=== PATIENT | male | born 1950 | race Caucasian/White ===

== ENCOUNTER → 2017-06-25 | Outpatient (CLI) | payer MEDICARE, OTHER ==
[~2017-06-25] MED LIST: CHOL10005 PO; MULT-1124 PO
--- NOTE | 2017-06-25 15:41 | RADIOLOGY IMAGING REPORT ---
FACILITY: [facility] [place] PATIENT NAME: Gilson Alvarez : 1950 MR: [id number] V: [id number] EXAM DATE: ORDERING PHYSICIAN: KIRSTIN BECKFORD TECHNOLOGIST: Location: [facility] Patient: Gilson Alvarez : 1950 Visit/Account:[id number] Date of Sevice: 06/25/2017 Exam type: THORACIC SPINE 3 VIEWS History: Neck pain, numbness and tingling down both upper extremities Comparison: Cervical spine series performed today. Findings: There is no evidence of acute fractures or subluxations in the thoracic spine. Tiny marginal osteoph ytes are present in the mid to lower thoracic spine. The upper most portion of the thoracic spine in the lateral projection is better seen on today's cervical spine series There does appear to moderate disc space narrowing in the upper portion of the thoracic spine IMPRESSION: 1. Mild to moderate spondylotic changes of the thoracic spine Report Dictated By: Maribel Chiang MD at 06/25/2017 3:34 PM Report E-Signed By: Maribel Chiang MD at 06/25/2017 3:37 PM WSN:[email or web address]
--- NOTE | 2017-06-25 15:44 | RADIOLOGY IMAGING REPORT ---
FACILITY: [facility] [place] PATIENT NAME: Gilson Alvarez : 1950 MR: [id number] V: [id number] EXAM DATE: ORDERING PHYSICIAN: KIRSTIN BECKFORD TECHNOLOGIST: Location: [facility] [place] Patient: Gilson Alvarez : 1950 Visit/Account:[id number] Date of Sevice: 06/25/2017 Exam type: CERVICAL SPINE MIN 4 VIEW History: Neck pain, numbness and tingling down both upper extremities Comparison: Thoracic spine series performed today. Findings: There is a 4 mm anterolisthesis of C4 with respect to C5 with moderate disc space narrowing and anter ior osteophytes. There is moderate disc space narrowing with anterior osteophytes at C5-6 and C6-7. At the level of C7-T1 there are severe disc space narrowing and a 6 mm anterior subluxation of C7 wi th respect to T1 there is severe foraminal narrowing on the left at C3-4 and C4-5 and moderate forami nal narrowing on the left at C5-6 and C6-7 and C7-T1. There is mild to moderate foraminal narrowing on the right at C3-4 C4-5 C5-6 C6-7 and C7-T1. These changes are related to hypertrophic degenerativ e facet joint changes and uncovertebral spurring. There is no evidence of prevertebral soft tissue s welling IMPRESSION: 1. Moderate to severe multilevel spondylotic changes of the cervical spine as described above Report Dictated By: Maribel Chiang MD at 06/25/2017 3:37 PM Report E-Signed By: Maribel Chiang MD at 06/25/2017 3:40 PM WSN:[email or web address]
== END ==
LOC: RAD 13:53
PROVIDERS: ATTEND Family Medicine
DX: M47.893 Other spondylosis, cervicothoracic region (principal)
CPT/HCPCS: 72050; 72072

== ENCOUNTER 2018-05-05 13:07 | Emergency (ER) | payer MEDICARE, OTHER ==
--- NOTE | 2018-05-05 13:42 | ER Report ---
History and Physical Time Seen By MD: 13:42 Hx. of Stated Complaint: HIT TREE WHILE SKIING- RIGHT RIB PAIN AND RIGHT UPPER ARM PAIN . HPI/ROS CHIEF COMPLAINT: Right shoulder, right arm and right rib pain HISTORY OF PRESENT ILLNESS: 67-year-old male patient presents to emergency room with complaint of right shoulder, right arm and right rib pain. Patient states that he was skiing today. He states he was going through [place] when he lost control and slid into a tree. Patient states that he was able to go the rest the way down was able to drive himself in. He states he has significant pain to the right arm as well as the right ribs. He states that he has a hard time moving the right arm because the pain. He denies having any numbness or tingling to the arm. He denies any nausea, vomiting or diarrhea. Patient states pain is worse when he takes a deep inspiration. REVIEW OF SYSTEMS: Respiratory: No cough, no dyspnea. Cardiovascular: No chest pain, no palpitations. Gastrointestinal: No vomiting, no abdominal pain. Musculoskeletal: As noted above Allergies: Coded Allergies: Penicillins (Unverified Allergy, Unknown, UNKNOWN, 12/06/13) doxycycline (Unverified Allergy, Unknown, UNKNOWN, 12/06/13) Home Meds Active Scripts Oxycodone Hcl/Acetaminophen (PERCOCET 5-325 MG TABLET) 1 Each Tablet, 1 EACH PO Q4-6H PRN for PAIN, #20 TAB Prov:NANO DEVINEP 05/05/18 Ketorolac Tromethamine (KETOROLAC TROMETHAMINE) 10 Mg Tab, 10 MG PO Q6H, #20 TAB Prov:NANO DEVINE [facility] 05/05/18 Discontinued Reported Medications Cholecalciferol (Vitamin D3) (VITAMIN D3) 1,000 Unit Tablet, 1 TAB PO DAILY 12/06/13 Multivitamin (DAILY VITAMIN FORMULA) 1 Each Tablet, 1 TAB PO DAILY 12/06/13 Past Medical/Surgical History Patient denies a pertinent medical history. Patient has surgical history of tonsillectomy, hernia repair. Reviewed Nurses Notes: Yes Smoking Status: Former Smoker Constitutional Vital Sign - Last 24 Hours 05/05/18 05/05/18 05/05/18 05/05/18 13:27 13:30 13:37 13:43 Temp 98.0 Pulse 60 ??? Resp 20 B/P (MAP) 134/85 ???/??? (1665) 132/84 (100) Pulse Ox 92 O2 Delivery Room Air 05/05/18 05/05/18 05/05/18 05/05/18 14:00 14:07 14:37 15:00 Pulse 62 62 B/P (MAP) 132/86 (101) 124/80 (95) Pulse Ox 94 93 05/05/18 05/05/18 05/05/18 05/05/18 15:05 15:30 15:35 16:00 Pulse 60 59 B/P (MAP) 114/78 (90) 115/76 (89) Pulse Ox 92 93 05/05/18 16:05 Pulse 63 Pulse Ox 92 Physical Exam General Appearance: The patient is alert, has no immediate need for airway protection and no current signs of toxicity. Respiratory: Chest is tender to the right side, lungs are clear to auscultation. Cardiac: regular rate and rhythm Gastrointestinal: Abdomen is soft and non tender, no masses, bowel sounds normal. Musculoskeletal: Neck: Neck is supple and non tender. Extremities have full range of motion and are non tender. Skin: No rashes or lesions. DIFFERENTIAL DIAGNOSIS: After history and physical exam differential diagnosis was considered for rib fracture, contusion, shoulder sprain. Medical Decision Making EKG/Imaging Imaging Exam type: CHEST PA LAT History: Fall while skiing Comparison: Right rib series performed today .. Findings: There are multiple right-sided rib fractures which will be discussed in a separate right rib series. There is no evidence of a pneumothorax pleural effusion or pulmonary consolidation. The cardiac silhouette appears normal. There is mild ectasia the thoracic aorta IMPRESSION: 1. Multiple right-sided rib fractures which will be discussed in a separate dictation. There is no evidence of acute pulmonary consolidation or pneumothorax Report Dictated By: Maribel Chiang MD at 05/05/2018 3:34 PM Report E-Signed By: Maribel Chiang MD at 05/05/2018 3:35 PM TECHNIQUE: HUMERUS RIGHT COMPARISON: Shoulder radiographs of the same day. FINDINGS: Bony alignment is normal. There is no evidence of humerus fracture. IMPRESSION: No humeral fracture Report Dictated By: Yady Ross MD at 05/05/2018 2:54 PM Report E-Signed By: Yady Ross MD at 05/05/2018 2:54 PM Exam type: RIBS RIGHT History: Fall while skiing Comparison: Today's two view chest. Findings: There is a mildly displaced fracture to the lateral aspect of the right sixth rib. This relatively nondisplaced fracture through the posterior lateral aspect the right eighth rib. There is a mildly displaced fracture to the anterior lateral aspect of the right seventh rib IMPRESSION: 1. Mildly displaced fracture to the lateral aspect of the right sixth rib. Mildly displaced fracture to the anterolateral aspect the right seventh rib Relatively nonspecific fracture to the posterior lateral aspect the right eighth rib Report Dictated By: Maribel Chiang MD at 05/05/2018 3:35 PM Report E-Signed By: Maribel Chiang MD at 05/05/2018 3:38 PM INDICATION: Fall while skiing. DATE: 05/05/2018 1:57 PM TECHNIQUE: SHOULDER MIN 2 VIEWS RIGHT COMPARISON: None FINDINGS: The humeral head articulates normally with the glenoid. The coraco- and acromioclavicular distances are normal. No evidence of fracture or di slocation. IMPRESSION: Radiographically normal shoulder. Report Dictated By: Yady Ross MD at 05/05/2018 2:53 PM Report E-Signed By: Yady Ross MD at 05/05/2018 2:54 PM ED Course/Re-evaluation ED Course Patient was admitted to an exam room, history and physical were obtained. Differential diagnoses were considered. On examination patient does have tenderness to the right ribs. There is no obvious tenderness to the right humerus or right shoulder. X-rays done of the right ribs, the right humerus as well as right shoulder. The humerus and shoulder was negative. The chest x-ray was done showed no acute cardiopulmonary processes. Patient did have 3 broken ribs, the right 6, 7, and 8. I discussed the findings with the patient. Patient had received a dose of Toradol here in the emergency room. He states he did have improved comfort with the Toradol. We discussed admission versus going home. I discussed with him the pain can be very significant with rib fractures. I did give him the option of being admitted work and treat his pain with IV pain medication. Patient states that he does have improved comfort with the Toradol and would like to go home. We will go ahead and discharge him home at this time. We'll give him a prescription for Percocet as well as Toradol. He states ice the ribs. He states make sure that he takes deep breaths. He is to return to the emergency room if his pain becomes uncontrollable. I would like him follow-up with his primary care provider in the next week. Patient verbalized understanding and agreement with plan. Decision to Disposition Date: May 05, 2018 Decision to Disposition Time: 15:56 Depart Departure Latest Vital Signs Vital Signs Date Time Temp Pulse Resp B/P (MAP) Pulse Ox O2 Delivery O2 Flow Rate FiO2 05/05/18 16:05 63 92 05/05/18 16:00 115/76 (89) 05/05/18 13:27 98.0 20 Room Air Impression: Primary Impression: Right rib fracture Condition: Improved Disposition: HOME OR SELF-CARE Referrals: KIRSTIN DUPREE DO (PCP) New Scripts Oxycodone Hcl/Acetaminophen (PERCOCET 5-325 MG TABLET) 1 Each Tablet 1 EACH PO Q4-6H PRN for PAIN, #20 TAB Prov: NANO DEVINE 05/05/18 Ketorolac Tromethamine (KETOROLAC TROMETHAMINE) 10 Mg Tab 10 MG PO Q6H, #20 TAB Prov: NANO DEVINE 05/05/18 Patient Instructions: Rib Fracture (ED) Additional Instructions: Limit activity by pain. Ice the ribs 2-3 times a day. Return to the ER if pain becomes unbearable. No Tylenol or Ibuprofen, Aleve, naproxen while taking your prescriptions. Follow up with Dr. Dupree in 1 week. Problem Qualifiers Primary Impression: Right rib fracture Encounter type: initial encounter Rib fracture type: multiple ribs Fracture type: closed Qualified Codes: S22.41XA - Multiple fractures of ribs, right side, initial encounter for closed fracture NANO DEVINE May 05, 2018 13:42
[2018-05-05] MEDS ORDERED: KETOROLAC TROM 10MG TAB PO ONE (14:00)
--- NOTE | 2018-05-05 14:59 | RADIOLOGY IMAGING REPORT ---
FACILITY: [facility] PATIENT NAME: Gilson Alvarez : 1950 MR: [id number] V: [id number] EXAM DATE: ORDERING PHYSICIAN: NANO DEVINE TECHNOLOGIST: Location: [facility] Patient: Gilson Alvarez : 1950 Visit/Account:[id number] Date of Sevice: 05/05/2018 INDICATION: Fall while skiing. DATE: 05/05/2018 1:57 PM TECHNIQUE: SHOULDER MIN 2 VIEWS RIGHT COMPARISON: None FINDINGS: The humeral head articulates normally with the glenoid. The coraco- and acromioclavicular distances are normal. No evidence of fracture or dislocation. IMPRESSION: Radiographically normal shoulder. Report Dictated By: Yady Ross MD at 05/05/2018 2:53 PM Report E-Signed By: Yady Ross MD at 05/05/2018 2:54 PM WSN:[email or web address]
--- NOTE | 2018-05-05 15:00 | RADIOLOGY IMAGING REPORT ---
FACILITY: [facility] PATIENT NAME: Gilson Alvarez : 1950 MR: [id number] V: [id number] EXAM DATE: ORDERING PHYSICIAN: NANO DEVINE TECHNOLOGIST: Location: Patient: Gilson Alvarez : 1950 Visit/Account:[id number] Date of Sevice: 05/05/2018 INDICATION: Fall while skiing. DATE: 05/05/2018 2:54 PM. TECHNIQUE: HUMERUS RIGHT COMPARISON: Shoulder radiographs of the same day. FINDINGS: Bony alignment is normal. There is no evidence of humerus fracture. IMPRESSION: No humeral fracture Report Dictated By: Yady Ross MD at 05/05/2018 2:54 PM Report E-Signed By: Yady Ross MD at 05/05/2018 2:54 PM WSN:[email or web address]
--- NOTE | 2018-05-05 15:40 | RADIOLOGY IMAGING REPORT ---
FACILITY: [facility] [place] PATIENT NAME: Gilson Alvarez : 1950 MR: [id number] V: [id number] EXAM DATE: ORDERING PHYSICIAN: NANO DEVINE TECHNOLOGIST: Location: [facility] Patient: Gilson Alvarez : 1950 Visit/Account:[id number] Date of Sevice: 05/05/2018 Exam type: CHEST PA LAT History: Fall while skiing Comparison: Right rib series performed today .. Findings: There are multiple right-sided rib fractures which will be discussed in a separate right rib series. There is no evidence of a pneumothorax pleural effusion or pulmonary consolidation. The cardiac liss houette appears normal. There is mild ectasia the thoracic aorta IMPRESSION: 1. Multiple right-sided rib fractures which will be discussed in a separate dictation. There is no evidence of acute pulmonary consolidation or pneumothorax Report Dictated By: Maribel Chiang MD at 05/05/2018 3:34 PM Report E-Signed By: Maribel Chiang MD at 05/05/2018 3:35 PM WSN:[email or web address]
--- NOTE | 2018-05-05 15:42 | RADIOLOGY IMAGING REPORT ---
FACILITY: [facility] PATIENT NAME: Gilson Alvarez : 1950 MR: [id number] V: [id number] EXAM DATE: ORDERING PHYSICIAN: NANO DEVINE TECHNOLOGIST: Location: [facility] [place] Patient: Gilson Alvarez : 1950 Visit/Account:[id number] Date of Sevice: 05/05/2018 Exam type: RIBS RIGHT History: Fall while skiing Comparison: Today's two view chest. Findings: There is a mildly displaced fracture to the lateral aspect of the right sixth rib. This relatively n ondisplaced fracture through the posterior lateral aspect the right eighth rib. There is a mildly di splaced fracture to the anterior lateral aspect of the right seventh rib IMPRESSION: 1. Mildly displaced fracture to the lateral aspect of the right sixth rib. Mildly displaced fracture to the anterolateral aspect the right seventh rib Relatively nonspecific fracture to the posterior lateral aspect the right eighth rib Report Dictated By: Maribel Chiang MD at 05/05/2018 3:35 PM Report E-Signed By: Maribel Chiang MD at 05/05/2018 3:38 PM WSN:[email or web address]
[2018-05-05] MEDS ORDERED: OXYC-865 PO (15:57)
[2018-05-05] MEDS ORDERED: KET10 PO (15:57)
[2018-05-05 16:00] VITALS: BP 115/76
== END 2018-05-05 16:07 | disposition home or self-care (01) ==
LOC: ER 13:31
DX: S22.41XA Multiple fractures of ribs, right side, initial encounter for closed fracture (principal); W22.8XXA Striking against or struck by other objects, initial encounter; Y93.23 Activity, snow (alpine) (downhill) skiing, snowboarding, sledding, tobogganing and snow tubing
CPT/HCPCS: 71046; 71100; 73030; 73060; 99284; A9270